=== PATIENT | female | born 1950 | race Caucasian/White ===

== ENCOUNTER 2017-03-30 12:27 | Emergency (ER) | payer MEDICAID ==
[2017-03-30] MEDS ORDERED: MORPHINE 10 MG/ML VIAL IM STA (13:41)
[2017-03-30] MEDS ORDERED: KETOROLAC 30 MG/ML VIAL IM STA (13:41)
--- NOTE | 2017-03-30 13:41 | ED Physician Documentation ---
PD HPI BACK PAIN - Stated complaint Stated Complaint: BACK PX - Chief complaint Chief Complaint: Back Pain - History obtained from History obtained from: Patient - History of Present Illness Timing - onset: How many days ago (3) Timing - duration: Days (has spinal fusion surgery 3 days ago and hurting despite norco and Flexeril. No vomiting, no rash, no fever. Normal neuro of legs and no urinary incontinence nor retention.) Timing - details: Abrupt onset (painful after surgery), Still present, Waxing and waning Location: Lower Quality: Pain, Spasm Associated symptoms: No: Fever, Weakness, Numbness, Incontinent of urine Recently seen: Surgery (3 days ago) Review of Systems Constitutional: denies: Fever, Chills Nose: denies: Rhinorrhea / runny nose, Congestion Throat: denies: Sore throat Respiratory: denies: Cough : denies: Dysuria, Hematuria Skin: denies: Rash PD PAST MEDICAL HISTORY - Past Medical History Past Medical History: Yes Endocrine/Autoimmune: None GI: None - Past Surgical History Ortho: Other (back fusion spine) - Present Medications Home Medications: Ambulatory Orders Medication Instructions Recorded Confirmed Cyclobenzaprine [Flexeril] 10 mg PO DAILY 03/30/17 03/30/17 Diazepam 5 mg PO TID PRN #20 tablet 03/30/17 Hydrocodone/Acetaminophen [Vicodin 2 tab PO QID 03/30/17 03/30/17 Hp 10-300 mg Tablet] Methylprednisolone 4 mg PO DAILY 03/30/17 03/30/17 Morphine Ir [Ms Ir] 15 mg PO Q6H PRN #20 tablet 03/30/17 busPIRone [Buspar] 10 mg PO DAILY 03/30/17 03/30/17 traMADol [Ultram] 50 mg PO DAILY 03/30/17 03/30/17 - Allergies Allergies/Adverse Reactions: Allergies Allergy/AdvReac Type Severity Reaction Status Date / Time amoxicillin Allergy Rash Verified 03/30/17 12:48 hydromorphone HCl * Allergy Hallucinati Verified 03/30/17 12:48 [From Dilaudid] ons meperidine HCl * Allergy Itching Verified 03/30/17 12:48 [From Demerol] - Social History Does the pt smoke?: No Smoking Status: Never smoker Does the pt drink ETOH?: No Does the pt have substance abuse?: No PD ED PE NORMAL - Vitals Vital signs reviewed: Yes - General General: Alert and oriented X 3, Well developed/nourished - Neck Neck: Supple, no meningeal sign, No bony TTP, No adenopathy - Cardiac Cardiac: RRR, No murmur - Respiratory Respiratory: Clear bilaterally - Abdomen Abdomen: Soft, Non tender - Female Female : Deferred - Rectal Rectal: Deferred - Back Back: No CVA TTP, Other (surgical site without signs of infection. ) - Derm Derm: Normal color, Warm and dry, No rash - Neuro Neuro: Alert and oriented X 3, No motor deficit, No sensory deficit, Normal speech - Psych Psych: Normal mood, Normal affect Results - Vitals Vitals: Oxygen O2 Source Room air PD MEDICAL DECISION MAKING - ED course Complexity details: considered differential (recent back surgery without signs/ concerns of infection. Normal neuro. Having pain not improved with meds. Talked with her about wanting to f/u with her surgeon and PMD. It is weekend though. I gave Rx for alternate, likely stronger pain meds and muscle relaxants to last about 5 days, which should get her to timeframe of operative pain hurting much less. Morphine tablet at comparable effect dose to Percocet but will have less euphoric effect so less addictive concern. ), d/w patient Departure - Departure Disposition: 01 Home, Self Care Clinical Impression: Postoperative back pain Condition: Stable Record reviewed to determine appropriate education?: Yes Instructions: ED Low Back Pain Injury Prescriptions: Diazepam 5 mg PO TID PRN #20 tablet PRN Reason: Spasms Morphine Ir [Ms Ir] 15 mg PO Q6H PRN #20 tablet PRN Reason: Pain Comments: Hold your Flexeril and Hydrocodone for now. Instead use Diazepam muscle relaxant and Morphine tablet for pain for the next 5 days or so. Presume your pain will be doing better as you get further out from surgery and can then revert back to the hydrocodone. Follow up PMD/Back Surgeon in the next week. Discharge Date/Time: 03/30/17 14:37
[2017-03-30] MEDS ORDERED: diazePAM 5 MG TABLET PO STA (13:42)
[2017-03-30] MEDS ORDERED: MORPHINE 10 MG/ML VIAL ONE (13:51)
[2017-03-30] MEDS ORDERED: KETOROLAC 30 MG/ML VIAL ONE (13:51)
[2017-03-30] MEDS ORDERED: diazePAM 5 MG TABLET PO ONE (13:52)
[2017-03-30 14:36] VITALS: BP 112/80
== END 2017-03-30 14:37 | disposition home or self-care (01) ==
LOC: EDSEX 12:27 → ED 12:27
DX: G89.18 Other acute postprocedural pain (principal); M54.9 Dorsalgia, unspecified; Z98.1 Arthrodesis status
CPT/HCPCS: 96372; 99283; A9270

== ENCOUNTER 2017-04-12 14:47 | Emergency (ER) | payer MEDICAID ==
[2017-04-12 15:46] LABS: UA w/ MICROSCOPIC CHARGE YES
[2017-04-12 15:58] LABS: UR CULTURE IF IND INDICATED; WBC,URINE >25 /HPF (0-5)
[2017-04-12] MEDS ORDERED: CIPROFLOXACIN 250 MG TABLET PO STA (16:32)
[2017-04-12] MEDS ORDERED: CIPROFLOXACIN 250 MG TABLET PO ONE (16:34)
[2017-04-12] MEDS ORDERED: KETOROLAC 60 MG/2 ML VIAL IM STA (17:18)
[2017-04-12] MEDS ORDERED: KETOROLAC 30 MG/ML VIAL ONE (17:24)
--- NOTE | 2017-04-12 17:32 | ED Physician Documentation ---
History of Present Illness - Stated complaint Stated Complaint: R LEG NUMB/BACK PX - Chief complaint Chief Complaint: General - Additonal information Additional information: hx rom pt 66 f s/p L45 surgery at [facility] 03/20 post op meds were baclofen lido patches norco and tramadol came to [place] to recover with her family this is her 2nd post op ER visit first visit she received rx for morphine IR and valium she may have been to a third facility as well because pharmacy records show she was also prescribed flexeril to ER today with back pain radiating down lateral aspect of R leg and some numbness to lateral R thigh and out of pain meds no fever no saddle anesthesia dysuria but no incont Review of Systems Constitutional: denies: Fever Throat: denies: Sore throat Cardiac: denies: Chest pain / pressure Respiratory: denies: Dyspnea GI: reports: Abdominal Pain (lower). denies: Nausea, Vomiting : reports: Dysuria Musculoskeletal: reports: Back pain Neurologic: reports: Numbness (lateral R thigh). denies: Focal weakness Immunocompromised: denies: Immunocompromised PD PAST MEDICAL HISTORY - Past Medical History Past Medical History: No Endocrine/Autoimmune: None GI: None - Past Surgical History Past Surgical History: Yes Ortho: Other - Present Medications Home Medications: Ambulatory Orders Medication Instructions Recorded Confirmed Cyclobenzaprine [Flexeril] 10 mg PO DAILY 03/30/17 03/30/17 Diazepam 5 mg PO TID PRN #20 tablet 03/30/17 Hydrocodone/Acetaminophen [Vicodin 2 tab PO QID 03/30/17 03/30/17 Hp 10-300 mg Tablet] Morphine Ir [Ms Ir] 15 mg PO Q6H PRN #20 tablet 03/30/17 busPIRone [Buspar] 10 mg PO DAILY 03/30/17 03/30/17 traMADol [Ultram] 50 mg PO DAILY 03/30/17 03/30/17 - Allergies Allergies/Adverse Reactions: Allergies Allergy/AdvReac Type Severity Reaction Status Date / Time amoxicillin Allergy Rash Verified 04/12/17 15:02 hydromorphone HCl * Allergy Hallucinati Verified 04/12/17 15:02 [From Dilaudid] ons meperidine HCl * Allergy Itching Verified 04/12/17 15:02 [From Demerol] - Social History Does the pt smoke?: No Smoking Status: Never smoker Does the pt drink ETOH?: No Does the pt have substance abuse?: No - Immunizations Immunizations are current?: Yes - POLST Patient has POLST: No PD ED PE NORMAL - Vitals Vital signs reviewed: Yes - Neck Neck: Supple, no meningeal sign - Cardiac Cardiac: RRR - Respiratory Respiratory: No respiratory distress, Clear bilaterally - Abdomen Abdomen: Soft, Non tender - Back Back: Other (sutures still in aftr 3 weeks, mild inflammation, no dehsic swelling drianage or cellulitis) - Derm Derm: Normal color - Neuro Neuro: No motor deficit (limited by pain but able to flex hip, extend knee foot dorsi plantar flexion great toe ext, slight dec sensaation lateral right thigh, denies saddle anesthesia, neg SLR) Results - Vitals Vitals: Vital Signs - 24 hr 04/12/17 04/12/17 14:52 17:38 Temperature 36.0 C L Heart Rate 77 79 Respiratory 20 16 Rate Blood Pressure 118/75 138/82 H O2 Saturation 100 98 Oxygen O2 Source Room air - Labs Labs: Laboratory Tests 04/12/17 15:16 Urine Color ORANGE Urine Clarity HAZY Urine pH Ur Specific [place] Urine Protein Urine Glucose (UA) Urine Ketones Urine Occult Blood Urine Nitrite Urine Bilirubin Urine Urobilinogen Ur Leukocyte Esterase Urine RBC 0-5 Urine WBC >25 H Ur Squamous Epith Cells NONE SEEN Urine Bacteria Many H Ur Microscopic Review INDICATED Urine Culture Comments INDICATED PD MEDICAL DECISION MAKING - ED course ED course: spoke to neurosurg personal fitness manager pt should have had sutures out at 2-3 weeks, has appt this week, if no fever and neuro intact agree best to defer imaging to surgeon (no MRI at [facility] at this time and CT unlikely to be useful given artifact from hardware) pt was dced on norco tramadol lido patches and baclofen since then [facility] has also filled rx for morphine IR #20, valium 5 mg #20, norco #90 and started taking flexeril instead of baclofen (and flexeril interacts with tramadil) [facility] has rx for tramadol but insurance has flagged pt for too many narcotics from too many providers and advised pharm not to full without prior authorization I explained to pt that this is not a problem I can solve for her she is willing to get toradol in the ER forgot to give opt rx for the cipro but I called it in to F[facility]les and called pt to advise her to apple picker tomorrow cipro 500 BID X 7 d, advsied probiotic or yogurt FY pt contact numbers in EMR are not correct, her personal number is disconnected, she is not staying with her daughter, she is staying at her sons and the number is Departure - Departure Disposition: 01 Home, Self Care Clinical Impression: Postoperative back pain UTI (urinary tract infection) Qualifiers: Urinary tract infection type: acute cystitis Hematuria presence: without hematuria Qualified Code(s): N30.00 - Acute cystitis without hematuria Condition: Good Instructions: ED Neck Back Pain General Comments: Please follow up with your spine surgeon this week as scheduled You pain medications will need to be prescribed and managed by your PMD or surgeon The pharmacy and insurance will not approve prescriptions from multiple different providers Discharge Date/Time: 04/12/17 17:41
[2017-04-12 17:38] VITALS: BP 138/82
== END 2017-04-12 17:41 | disposition home or self-care (01) ==
LOC: ED 14:47
DX: M54.9 Dorsalgia, unspecified (principal); G89.18 Other acute postprocedural pain; N30.00 Acute cystitis without hematuria
CPT/HCPCS: 81001; 87077; 87086; 87181; 96372; 99283; 99284; A9270; 81003

== ENCOUNTER 2019-03-22 13:21 | Emergency (ER) | payer OTHER ==
[2019-03-22 13:38] VITALS: BP 136/82
--- NOTE | 2019-03-22 14:01 | ED Physician Documentation ---
PD HPI LOWER EXT INJURY - Stated complaint Stated Complaint: L KNEE INJ - Chief complaint Chief Complaint: Ext Problem - History obtained from History obtained from: Patient - History of Present Illness PD HPI LOW EXT INJURY LOCATION: Left, Hip, Knee Type of injury: Fall Where injury occurred: Work Timing - onset: How many days ago (4) Timing - duration: Days (4) Timing - details: Abrupt onset, Still present Improved by: Rest, Immobilization Worsened by: Moving, Palpating Associated symptoms: Swelling. No: Weakness, Numbness Contributing factors: No: Anticoagulated Similar symptoms before: Diagnosis (has had multiple falls previously) Recently seen: Not recently seen - Additional information Additional information: 68-year-old female with prior multi-level trauma who is on a pain contract was at work walking on a sidewalk when she tripped over a small ledge and fell onto her left side. She has an abrasion to the left knee and increasing pain in the left knee she also has some pain in the left hip and in the left elbow and shoulder. She states she ann herself hard but she has been tolerating these symptoms and she is able to walk. She does have some increased pain today above the knee on the left side. She has had prior extensive injury to the left knee Review of Systems Constitutional: denies: Fever Eyes: denies: Decreased vision Ears: denies: Ear pain Nose: denies: Congestion Throat: denies: Sore throat Cardiac: denies: Chest pain / pressure Respiratory: denies: Dyspnea, Cough GI: denies: Abdominal Pain, Nausea, Vomiting : denies: Dysuria, Frequency PD PAST MEDICAL HISTORY - Past Medical History Endocrine/Autoimmune: None GI: None - Past Surgical History Past Surgical History: Yes Ortho: Other - Present Medications Home Medications: Ambulatory Orders Medication Instructions Recorded Confirmed Cyclobenzaprine [Flexeril] 10 mg PO DAILY 03/30/17 03/30/17 Hydrocodone/Acetaminophen [Vicodin 2 tab PO QID 03/30/17 03/30/17 Hp 10-300 mg Tablet] Morphine Ir [Ms Ir] 15 mg PO Q6H PRN #20 tablet 03/30/17 busPIRone [Buspar] 10 mg PO DAILY 03/30/17 03/30/17 diazePAM [Diazepam] 5 mg PO TID PRN #20 tablet 03/30/17 traMADol [Ultram] 50 mg PO DAILY 03/30/17 03/30/17 Cephalexin [Keflex] 500 mg PO Q6H #28 capsule 03/22/19 - Allergies Allergies/Adverse Reactions: Allergies Allergy/AdvReac Type Severity Reaction Status Date / Time amoxicillin Allergy Rash Verified 03/22/19 13:38 hydromorphone HCl * Allergy Hallucinati Verified 03/22/19 13:38 [From Dilaudid] ons meperidine HCl * Allergy Itching Verified 03/22/19 13:38 [From Demerol] - Social History Does the pt smoke?: No Smoking Status: Never smoker Does the pt drink ETOH?: No Does the pt have substance abuse?: No - Immunizations Immunizations are current?: Yes - POLST Patient has POLST: No PD ED PE NORMAL - Vitals Vital signs reviewed: Yes (hypertensive ) - General General: Alert and oriented X 3, No acute distress, Well developed/nourished - HEENT HEENT: Atraumatic, PERRL - Neck Neck: Supple, no meningeal sign - Respiratory Respiratory: No respiratory distress - Back Back: No CVA TTP, No spinal TTP - Derm Derm: Normal color, Warm and dry, No rash - Extremities Extremities: Other (There is deformity to the left calf anteriorly from prior orthopedic surgery and there is an abrasion to the knee over the patella that is no deep but there is surrounding erythema and tenderness with the erythema extending greater than 1cm from the margin of the wound and it is blanching consistent with acute infection. The ligaments are stable to testing and the distal n/v is intact. There is mild tenderness to the left hip and elbow with normal ROM and no ecchymosis or abrasion. There is mild tenderness to the lateral epicondyle that is mild and there is full ROM to the elbow and shoulder joints without pain. The gait is nearly normal with only slight limp ) - Neuro Neuro: Alert and oriented X 3, client program manager 2-12 intact, No motor deficit, No sensory deficit, Normal speech Eye Opening: Spontaneous Motor: Obeys Commands Verbal: Oriented GCS Score: 15 - Psych Psych: Normal mood, Normal affect Results - Vitals Vitals: Vital Signs - 24 hr 03/22/19 03/22/19 13:35 14:02 Temperature 36.3 C L Heart Rate 71 Respiratory 14 Rate Blood Pressure 136/82 H O2 Saturation 96 Oxygen O2 Source Room air - Rads (name of study) left LE Radiology: Prelim report reviewed (Impression: 1. There is no evidence for acute osseous injury left knee. 2. Lucency involving the distal femur and proximal tibia query prior injury versus bone lesion. Recommend CT for further evaluation if indicated. 3. Moderate tricompartmental osteoarthritis.) PD MEDICAL DECISION MAKING - ED course Complexity details: reviewed results, re-evaluated patient, considered differential, d/w patient, d/w family ED course: Patient with a fall onto the sidewalk has an abrasion to her knee looks like there is some early evidence of infection. We will place her on some Keflex. She is limping minimally and I do not believe her orthopedic injury is significant. Departure - Departure Disposition: 01 Home, Self Care Clinical Impression: Infected abrasion of knee Qualifiers: Encounter type: initial encounter Laterality: left Qualified Code(s): S80.212A - Abrasion, left knee, initial encounter; L08.9 - Local infection of the skin and subcutaneous tissue, unspecified Condition: Stable Instructions: ED Abrasion, ED Infec Skin Cellulitis Follow-Up: AUDREY MATOS MD [Primary Care Provider] - Prescriptions: Cephalexin [Keflex] 500 mg PO Q6H #28 capsule
--- NOTE | 2019-03-22 14:39 | XRAY Report ---
Reason: pain Procedure Date: 03/22/2019 Accession Number: [id number] / [id number] Procedure: XR - Knee 3 View LT CPT Code: FULL RESULT: EXAM: LEFT KNEE RADIOGRAPHY EXAM DATE: 03/22/2019 02:10 PM. CLINICAL HISTORY: Pain. COMPARISON: None. TECHNIQUE: 3 views. FINDINGS: Bones: No acute fracture. Diffuse lucency involving the distal femur and proximal tibia. Joints: No effusion. Moderate tricompartmental joint space loss. Soft Tissues: No soft tissue swelling. IMPRESSION: 1. No evidence for acute osseous injury left knee. 2. Lucency involving distal femur and proximal tibia, query prior injury versus bone lesion. Recommend CT for further evaluation if indicated. 3. Moderate tricompartmental osteoarthritis. RADIA
== END 2019-03-22 14:55 | disposition home or self-care (01) ==
LOC: ED 13:21
DX: S80.212A Abrasion, left knee, initial encounter (principal); L08.9 Local infection of the skin and subcutaneous tissue, unspecified; M25.552 Pain in left hip; M25.522 Pain in left elbow; M25.512 Pain in left shoulder; W01.0XXA Fall on same level from slipping, tripping and stumbling without subsequent striking against object, initial encounter; Y93.01 Activity, walking, marching and hiking; Y92.480 Sidewalk as the place of occurrence of the external cause; Y99.0 Civilian activity done for income or pay
CPT/HCPCS: 99283

== ENCOUNTER 2019-11-23 13:42 | Emergency (ER) | payer MEDICAID, OTHER ==
[2019-11-23] MEDS ORDERED: KETOROLAC 30 MG/ML VIAL IVP STA (14:32)
--- NOTE | 2019-11-23 14:36 | ED Physician Documentation ---
PD HPI LOWER EXT INJURY - Stated complaint Stated Complaint: R ANKLE/LEG INJ - Chief complaint Chief Complaint: Trauma Ext - History obtained from History obtained from: Patient - History of Present Illness PD HPI LOW EXT INJURY LOCATION: Right, Knee, Lower leg, Ankle Type of injury: Other (Patient states that she was walking her horse to the barn when the horse fell landing on her right lower leg.) Where injury occurred: Home Timing - onset: How many hours ago (1) Timing - duration: Hours (1) Timing - details: Abrupt onset Pain level max: 9 Pain level now: 9 Improved by: Rest Worsened by: Moving, Palpating Associated symptoms: Swelling. No: Weakness, Numbness, Tingling, Discolored Contributing factors: No: Anticoagulated Recently seen: Not recently seen Review of Systems Ten Systems: 10 systems reviewed and negative Constitutional: denies: Fever, Chills Nose: denies: Rhinorrhea / runny nose, Congestion Respiratory: denies: Cough GI: denies: Nausea, Vomiting Musculoskeletal: denies: Neck pain, Back pain Neurologic: denies: Focal weakness, Numbness, Confused, Headache, Head injury, LOC PD PAST MEDICAL HISTORY - Past Medical History Endocrine/Autoimmune: None GI: None - Past Surgical History Past Surgical History: Yes Ortho: Other - Present Medications Home Medications: Ambulatory Orders Medication Instructions Recorded Confirmed Cyclobenzaprine [Flexeril] 10 mg PO DAILY 03/30/17 03/30/17 Hydrocodone/Acetaminophen [Vicodin 2 tab PO QID 03/30/17 03/30/17 Hp 10-300 mg Tablet] Morphine Ir [Ms Ir] 15 mg PO Q6H PRN #20 tablet 03/30/17 busPIRone [Buspar] 10 mg PO DAILY 03/30/17 03/30/17 diazePAM [Diazepam] 5 mg PO TID PRN #20 tablet 03/30/17 traMADol [Ultram] 50 mg PO DAILY 03/30/17 03/30/17 Cephalexin [Keflex] 500 mg PO Q6H #28 capsule 03/22/19 Oxycodone HCl/Acetaminophen 1 - 2 each PO Q6H PRN #14 tablet 11/23/19 [Percocet 5-325 mg Tablet] - Allergies Allergies/Adverse Reactions: Allergies Allergy/AdvReac Type Severity Reaction Status Date / Time amoxicillin Allergy Rash Verified 11/23/19 13:55 hydromorphone HCl * Allergy Hallucinati Verified 11/23/19 13:55 [From Dilaudid] ons meperidine HCl * Allergy Itching Verified 11/23/19 13:55 [From Demerol] - Social History Does the pt smoke?: No Smoking Status: Never smoker Does the pt drink ETOH?: No Does the pt have substance abuse?: No - Immunizations Immunizations are current?: Yes - POLST Patient has POLST: No PD ED PE NORMAL - Vitals Vital signs reviewed: Yes - General General: Alert and oriented X 3, No acute distress - HEENT HEENT: Moist mucous membranes - Neck Neck: Supple, no meningeal sign - Cardiac Cardiac: RRR - Respiratory Respiratory: No respiratory distress, Clear bilaterally - Abdomen Abdomen: Soft, Non tender, Non distended - Back Back: No spinal TTP - Derm Derm: Warm and dry - Extremities Extremities: Other (Diffusely tender to palpation over the right knee, right tib-fib and right lateral malleolus. There is swelling over the right lateral malleolus as well. Neurovascular intact. Otherwise normal examination of the right lower extremity) - Neuro Neuro: Alert and oriented X 3 Results - Vitals Vitals: Vital Signs - 24 hr 11/23/19 11/23/19 11/23/19 13:53 15:22 16:08 Temperature 36.1 C L Heart Rate 80 76 72 Respiratory 16 18 18 Rate Blood Pressure 132/79 H 126/75 99/78 O2 Saturation 98 100 97 Oxygen O2 Source Room air - Rads (name of study) Right knee x-ray Radiology: Prelim report reviewed, EMP read contemporaneously, See rad report (No acute fracture or dislocation visualized. ) Right tib-fib x-ray Radiology: Prelim report reviewed, EMP read contemporaneously, See rad report (Partially visualized acute fracture through the medial malleolus of the right ankle. ) Right ankle x-ray Radiology: Prelim report reviewed, EMP read contemporaneously, See rad report (Acute nondisplaced transverse fracture through the medial malleolus of the distal right tibia. Small right ankle joint effusion. ) Procedures - Splint (location) Right lower extremity Splint applied by: Physician, Tech Type of splint: Fiberglass, Short leg, Posterior, Stirrup Other: Patient tolerated well, No complications, Neurovascular intact, Good alignment, Crutches provided PD MEDICAL DECISION MAKING - ED course Complexity details: reviewed results, re-evaluated patient, considered differential, d/w patient ED course: Patient with a medial malleolus fracture. Placed in a splint. Given crutches. Pain well controlled. We will have her follow-up with orthopedics for further care. Neurovascular intact. Patient counseled regarding signs and symptoms for which I believe and urgent re-evaluation would be necessary. Patient with good understanding of and agreement to plan and is comfortable going home at this time This document was made in part using voice recognition software. While efforts are made to proofread this document, sound alike and grammatical errors may occur. Departure - Departure Disposition: 01 Home, Self Care Clinical Impression: Fractured medial malleolus Qualifiers: Encounter type: initial encounter Fracture type: closed Fracture alignment: displaced Laterality: right Qualified Code(s): S82.51XA - Displaced fracture of medial malleolus of right tibia, initial encounter for closed fracture Condition: Good Instructions: ED Fx Lower Ext Follow-Up: AUDREY MATOS MD [Primary Care Provider] - [facility] [Provider Group] - Within 1 week Prescriptions: Oxycodone HCl/Acetaminophen [Percocet 5-325 mg Tablet] 1 - 2 each PO Q6H PRN #14 tablet PRN Reason: pain Comments: Follow-up with orthopedics for further care. Return if you worsen. Use the crutches to help get around. Do not drink alcohol or drive while on narcotic pain medicine. Note that many narcotic pain relievers also contain tylenol/acetaminophen. Please ensure that your total dose of acetaminophen from all sources does not exceed 3 grams (3000mg) per day. You may constipated on this medication, take a stool softener such as "Colace" twice a day while you are on it. Also recommend a [id number] laxative such as senna or MiraLAX any day that you do not have a bowel movement. If you received narcotic pain medication in the emergency department, do not drive or operate machinery for the next 24 hours. Discharge Date/Time: 11/23/19 16:33
--- NOTE | 2019-11-23 15:24 | XRAY Report ---
Reason: horse fell on leg, knee pain Procedure Date: 11/23/2019 Accession Number: [id number] / [id number] Procedure: XR - Knee 4 View RT CPT Code: Final Report FULL RESULT: EXAM: RIGHT KNEE RADIOGRAPHY EXAM DATE: 11/23/2019 03:09 PM. CLINICAL HISTORY: Horse fell on leg, knee pain. COMPARISON: None available. TECHNIQUE: 4 views. FINDINGS: Bones: No acute fracture or dislocation. Joints: No joint effusion. Mild to moderate narrowing of the lateral compartment joint space with small marginal osteophyte formation. Subchondral/subcortical cystic change at the lateral tibial plateau. Soft Tissues: Small metallic density at the anterior thigh is likely external to the patient. No significant soft tissue swelling. IMPRESSION: No acute fracture or dislocation visualized. Degenerative joint disease involving the lateral compartment. Kellgren Bryant Grade 2. Kellgren and Bryant classification of osteoarthritis: Grade 0: no radiographic features of osteoarthritis are present Grade 1: doubtful joint space narrowing (JSN) and possible osteophytic lipping Grade 2: definite osteophytes and possible JSN on anteroposterior weight-bearing radiograph Grade 3: multiple osteophytes, definite JSN, sclerosis, possible bony deformity Grade 4: large osteophytes, marked JSN, severe sclerosis and definite bony deformity RADIA
--- NOTE | 2019-11-23 15:26 | XRAY Report ---
Reason: horse fell on leg, tib/fib pain Procedure Date: 11/23/2019 Accession Number: [id number] / [id number] Procedure: XR - Tib/Fib RT CPT Code: Final Report FULL RESULT: EXAM: RIGHT TIBIA/FIBULA RADIOGRAPHY EXAM DATE: 11/23/2019 03:09 PM. CLINICAL HISTORY: Horse fell on leg, tib/fib pain. COMPARISON: None available. TECHNIQUE: 2 views. FINDINGS: Bones: Partially visualized transverse linear fracture at the medial malleolus. No additional fractures or dislocations. Joints: Intact. No visible effusions. Soft Tissues: Soft tissue swelling near the medial ankle. IMPRESSION: Partially visualized acute fracture through the medial malleolus of the right ankle. RADIA
--- NOTE | 2019-11-23 15:28 | XRAY Report ---
Reason: horse fell on leg, ankle pain Procedure Date: 11/23/2019 Accession Number: [id number] / [id number] Procedure: XR - Ankle 3 View RT CPT Code: Final Report FULL RESULT: EXAM: RIGHT ANKLE RADIOGRAPHY EXAM DATE: 11/23/2019 03:04 PM. CLINICAL HISTORY: Horse fell on leg, ankle pain. COMPARISON: None available. TECHNIQUE: 3 views. FINDINGS: Bones: There is an acute nondisplaced transverse fracture through the medial malleolus with articular surface involvement at the tibial plafond. No additional fractures or dislocations. Degenerative calcaneal spurring near the Achilles tendon attachment. Joints: No abnormal widening of the ankle mortise clear spaces. Small ankle joint effusion. Soft Tissues: Anterior and medial soft tissue swelling. IMPRESSION: Acute nondisplaced transverse fracture through the medial malleolus of the distal right tibia. Small right ankle joint effusion. RADIA
[2019-11-23 16:09] VITALS: BP 99/78
== END 2019-11-23 16:33 | disposition home or self-care (01) ==
LOC: ED 13:42
DX: S82.54XA Nondisplaced fracture of medial malleolus of right tibia, initial encounter for closed fracture (principal); W55.19XA Other contact with horse, initial encounter; Y93.K1 Activity, walking an animal; Y92.008 Other place in unspecified non-institutional (private) residence as the place of occurrence of the external cause; M17.11 Unilateral primary osteoarthritis, right knee
CPT/HCPCS: 29515

== ENCOUNTER 2020-11-15 14:17 | Outpatient (CLI) | payer MEDICARE | END 2020-11-15 14:18 | disposition home or self-care (01) | LOC: COV 14:17 | PROVIDERS: ATTEND Family Medicine | DX: R05 Cough (principal); R06.02 Shortness of breath; M79.10 Myalgia, unspecified site; R53.83 Other fatigue; R19.7 Diarrhea, unspecified; R43.9 Unspecified disturbances of smell and taste; R11.0 Nausea; Z20.822 Contact with and (suspected) exposure to COVID-19 ==

== ENCOUNTER 2022-09-02 08:00 | Outpatient (CLI) | payer MEDICARE, OTHER ==
--- NOTE | 2022-09-02 12:57 | XRAY Report ---
PROCEDURE: Chest 2 View X-Ray INDICATIONS: WHEEZING TECHNIQUE: PA and lateral chest. COMPARISON: None. FINDINGS: Lung parenchyma is clear. Heart and mediastinal contours appear within normal limits. Pulmonary vascu larity is normal. No pleural effusion or acute osseous abnormality is seen. IMPRESSION: No evidence for active disease in the chest. Reviewed by: Ventura Stoner MD on 09/02/2022 12:56 PM PST Approved by: Ventura Stoner MD on 09/02/2022 12:56 PM PST Station ID: [id number]
== END 2022-09-02 23:59 | disposition home or self-care (01) ==
LOC: DI.N 08:00
PROVIDERS: ATTEND Physician Assistant
DX: R06.2 Wheezing (principal)

== ENCOUNTER 2023-10-19 17:04 | Emergency (ER) | payer OTHER, MEDICARE ==
[2023-10-19 17:22] VITALS: BP 130/71; O2SAT 98
[2023-10-19] MEDS ORDERED: BUFFERED LIDOCAINE 10 ML SYRINGE SUBQ STA (18:17)
--- NOTE | 2023-10-19 18:17 | ED Physician Documentation ---
PD HPI SKIN - Stated complaint Stated Complaint: CHIN LAC - Chief complaint Chief Complaint: Laceration - History obtained from History obtained from: Patient - Additional information Additional information: Patient presents for accidental facial injury. Patient was getting marlon presents out when she struck her face against a door. She has a small laceration on her chin next to her R lip. Not UTD on tetanus. No LOC, not on blood thinners. Review of Systems Constitutional: denies: Fever, Chills Cardiac: denies: Chest pain / pressure, Palpitations, Calf pain Respiratory: denies: Dyspnea, Cough, Wheezing Skin: reports: Laceration (s). denies: Rash, Lesions, Abrasion (s) PD PAST MEDICAL HISTORY - Past Medical History Endocrine/Autoimmune: None GI: None - Past Surgical History Past Surgical History: Yes Ortho: Other - Present Medications Home Medications: Ambulatory Orders Medication Instructions Recorded Confirmed Cyclobenzaprine [Flexeril] 10 mg PO DAILY 03/30/17 03/30/17 Hydrocodone/Acetaminophen [Vicodin 2 tab PO QID 03/30/17 03/30/17 Hp 10-300 mg Tablet] Morphine Ir [Ms Ir] 15 mg PO Q6H PRN #20 tablet 03/30/17 busPIRone [Buspar] 10 mg PO DAILY 03/30/17 03/30/17 diazePAM [Diazepam] 5 mg PO TID PRN #20 tablet 03/30/17 traMADol [Ultram] 50 mg PO DAILY 03/30/17 03/30/17 cephALEXin [Keflex] 500 mg PO Q6H #28 capsule 03/22/19 Oxycodone HCl/Acetaminophen 1 - 2 each PO Q6H PRN #14 tablet 11/23/19 [Percocet 5-325 mg Tablet] - Allergies Allergies/Adverse Reactions: Allergies Allergy/AdvReac Type Severity Reaction Status Date / Time amoxicillin Allergy Rash Verified 11/23/19 13:55 hydromorphone HCl * Allergy Hallucinati Verified 11/23/19 13:55 [From Dilaudid] ons meperidine HCl * Allergy Itching Verified 11/23/19 13:55 [From Demerol] - Social History Does the pt smoke?: No Smoking Status: Never smoker Does the pt drink ETOH?: No Does the pt have substance abuse?: No - Immunizations Immunizations are current?: Yes - POLST Patient has POLST: No PD ED PE NORMAL - Vitals Vital signs reviewed: Yes - General General: Alert and oriented X 3, No acute distress, Well developed/nourished - HEENT HEENT: PERRL, EOMI, Ears normal - Neck Neck: Supple, no meningeal sign, No bony TTP, C-Spine cleared by NEXUS criteria - Cardiac Cardiac: RRR - Respiratory Respiratory: No respiratory distress - Abdomen Abdomen: Soft, Non tender, Non distended - Derm Derm: Normal color, Warm and dry, No rash, Other (1cm laceration R chin) - Neuro Neuro: Alert and oriented X 3, 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, No motor deficit, Normal speech Results - Vitals Vitals: Vital Signs - 24 hr 10/19/23 17:14 Temperature 36.5 C Heart Rate 71 Respiratory 18 Rate Blood Pressure 130/71 O2 Saturation 98 Oxygen O2 Source Room air Procedures - Laceration (location) Face right Length in cm: 0.5 Wound type: Linear Anesthesia: Lidocaine 1% Wound preparation: Hibiclens, Irrigated copiously NS Skin layer closure: Nylon, Size #-0 - enter number (3), Sutures - enter # (3) Other: Patient tolerated well, No complications, Dressing applied, Tetanus booster given PD Medical Decision Making - ED course Complexity details: reviewed results, re-evaluated patient, considered differe ntial, d/w patient ED course: Facial laceration. No indication for head CT based on very low impact mechanism. Repaired per procedure notes. Tetanus updated. Note for work provided. Departure - Departure Disposition: 01 Home, Self Care Clinical Impression: Facial laceration Qualifiers: Encounter type: initial encounter Qualified Code(s): S01.81XA - Laceration without foreign body of other part of head, initial encounter Condition: Stable Instructions: ED Laceration All Comments: Suture removal in 5 days. Keep wound clean and dry. Take Tylenol and Motrin as needed for pain. Forms: PCP List Discharge Date/Time: 10/19/23 19:07
== END 2023-10-19 19:07 | disposition home or self-care (01) ==
LOC: ED 17:04
DX: S01.91XA Laceration without foreign body of unspecified part of head, initial encounter (principal); W22.8XXA Striking against or struck by other objects, initial encounter; Z79.899 Other long term (current) drug therapy
CPT/HCPCS: 12011; 99282

== ENCOUNTER 2023-11-07 11:18 | Outpatient (CLI) | payer OTHER, MEDICARE ==
--- NOTE | 2023-11-07 12:30 | XRAY Report ---
PROCEDURE: Cervical Spine 4-5V INDICATIONS: CERVICALGIA TECHNIQUE: 4 views of the cervical spine acquired. COMPARISON: None. FINDINGS: Bones: No fractures or dislocations to the T1 level. Oblique images demonstrate no bony foraminal s tenoses. ACDF at C4-C6. Osseous fusion of these discs. Moderate disc height loss at C3-4. Severe dis c height loss at C6-7. Diffuse facet arthrosis, most prominent at C3-4, C4-5, C5-6 and C6-7. Soft tissues: No prevertebral soft tissue swelling. IMPRESSION: ACDF of C4-C6, without hardware complication. Degenerative disc disease and diffuse facet arthrosis, as above. Reviewed by: Alex Park MD on 11/07/2023 12:29 PM PST Approved by: Alex Park MD on 11/07/2023 12:29 PM PST Station ID: [id number]
== END 2023-11-07 11:19 | disposition home or self-care (01) ==
LOC: DI 11:18
PROVIDERS: ATTEND Student in an Organized Health Care Education/Training Program
DX: M50.31 Other cervical disc degeneration, high cervical region (principal)

== ENCOUNTER 2023-12-15 08:00 | Outpatient (CLI) | payer OTHER, MEDICARE | END 2023-12-15 23:59 | disposition home or self-care (01) | LOC: LAB.S 08:00 | PROVIDERS: ATTEND Physician Assistant Medical | DX: R30.0 Dysuria (principal) | CPT/HCPCS: 87086 ==

== ENCOUNTER 2023-12-15 08:00 | Outpatient (CLI) | payer MEDICARE, OTHER ==
[2023-12-15 23:31] LABS: BACTERIAL VAGINOSIS DNA NEGATIVE (NEGATIVE); CANDIDA GLABRATA DNA NEGATIVE (NEGATIVE); CANDIDA GROUP DNA NEGATIVE (NEGATIVE); CANDIDA KRUSEI DNA NEGATIVE (NEGATIVE); TRICHOMONAS VAGINALIS DNA NEGATIVE (NEGATIVE)
== END 2023-12-15 23:59 | disposition home or self-care (01) ==
LOC: LAB.S 08:00
PROVIDERS: ATTEND Physician Assistant Medical
DX: N76.0 Acute vaginitis (principal)
CPT/HCPCS: 81514